=== PATIENT | male | born 1955 | race Caucasian/White ===

== ENCOUNTER 2017-06-20 10:22 | Emergency (ER) | payer BC ==
[2017-06-20 10:32] VITALS: TEMP 98.1
[2017-06-20] MEDS ORDERED: LIDOCAINE 2% VISCOUS 15 ML UDCUP PO ONE (10:58)
[2017-06-20] MEDS ORDERED: MAG HYDROX/AL HYDROX/SIMETH 30 ML UDCUP PO ONE (10:58)
[2017-06-20] MEDS ORDERED: HYOSCYAMINE SULFATE 0.125 MG TAB PO ONE (10:58)
[2017-06-20] MEDS ORDERED: ASPIRIN 81 MG CHEWABLE TAB PO ONE (10:58)
--- NOTE | 2017-06-20 11:01 | CPEKG ---
Heart Rate: 74 RR Interval: 811 P-R Interval: 188 QRSD Interval: 82 QT Interval: 408 QTC Interval: 453 P [place]: 76 QRS [place]: -3 T Wave [place]: 60 EKG Severity - NORMAL ECG - EKG Impression: SINUS RHYTHM Electronically Signed By: Tyler Wilson 20-Jun-2017 11:09:18
[2017-06-20 11:05] LABS: PLATELET COUNT 153 10^3/uL (150-400)
--- NOTE | 2017-06-20 11:08 | EDPHY ---
H & P Stated Complaint: L sided CP/indigestion last pm;wants to get checked before travelling Time Seen by Provider: 06/20/17 10:48 HPI/ROS: CHIEF COMPLAINT: Chest pain HISTORY OF PRESENT ILLNESS: The patient is a 61-year-old man with no significant medical history who comes to the emergency department complaining of chest pain in his left chest that began around 3:00 a.m.. He has had similar symptoms in the past and has had a negative cardiac workup previously. He had a negative stress test 1 year ago. He has been told before that he has an irregular heart rhythm. He thought maybe he had indigestion today. He has not taken any medications. It does not hurt worse with movement. He drove her a week ago from [facility]. No leg pain or swelling. REVIEW OF SYSTEMS: Constitutional: denies: chills, fever, recent illness, recent injury EENTM: denies: blurred vision, double vision, nose congestion Respiratory: denies: cough, shortness of breath Cardiac: See HPI, no lightheadedness or palpitations. Gastrointestinal/Abdominal: denies: abdominal pain, diarrhea, nausea, vomiting, blood streaked stools Genitourinary: denies: dysuria, frequency, hematuria, pain Musculoskeletal: denies: joint pain, muscle pain Skin: denies: lesions, rash, jaundice, bruising Neurological: denies: headache, numbness, paresthesia, tingling, dizziness, weakness Hematologic/Lymphatic: denies: blood clots, easy bleeding, easy bruising Immunologic/allergic: denies: HIV/AIDS, transplant EXAM: GENERAL: Well-appearing, thin and in no acute distress. HEAD: Atraumatic, normocephalic. EYES: Pupils equal round and reactive to light, extraocular movements intact, sclera anicteric, conjunctiva are normal. ENT: TMs normal, nares patent, oropharynx clear without exudates. Moist mucous membranes. NECK: Normal range of motion, supple without lymphadenopathy or JVD. LUNGS: Breath sounds clear to auscultation bilaterally and equal. No wheezes rales or rhonchi. HEART: Regular rate and rhythm without murmurs, rubs or gallops. ABDOMEN: Soft, nontender, normoactive bowel sounds. No guarding, no rebound. No masses appreciated. BACK: No CVA tenderness, no spinal tenderness, step-offs or deformities EXTREMITIES: Normal range of motion, no pitting or edema. No clubbing or cyanosis. NEUROLOGICAL: Cranial nerves II through XII grossly intact. Normal speech, normal gait. 5/5 strength, normal movement in all extremities, normal sensation PSYCH: Normal mood, normal affect. SKIN: Warm, dry, normal turgor, no visible rashes or lesions. Source: Patient Exam Limitations: No limitations - Personal History Current Tetanus Diphtheria and Acellular Pertussis (TDAP): Yes - Medical/Surgical History Hx Asthma: No Hx Chronic Respiratory Disease: No Hx Diabetes: No Hx Cardiac Disease: No Hx Renal Disease: No Hx Cirrhosis: No Other PMH: migraines - Family History Significant Family History: No pertinent family hx - Social History Smoking Status: Never smoked Alcohol Use: Sober Drug Use: None Constitutional: Initial Vital Signs Temperature (C) 36.7 C 06/20/17 10:23 Heart Rate 91 06/20/17 10:23 Respiratory Rate 18 06/20/17 10:23 Blood Pressure 120/79 06/20/17 10:23 O2 Sat (%) 98 06/20/17 10:23 O2 Delivery Mode Room Air Allergies/Adverse Reactions: No Known Allergies Allergy (Unverified 06/20/17 10:27) Home Medications: Medication Instructions Recorded Eletriptan HBr [Relpax] 20 mg PO 06/20/17 Medical Decision Making - Diagnostics EKG Interpretation: An EKG obtained and was read and documented in trace view. Please see trace view for full reading and report. Sinus rhythm with sinus arrhythmia. Imaging: Discussed imaging studies w/ callisthenics instructor Radiologist ED Course/Re-evaluation: 2:20 p.m. the patient is currently asymptomatic. He feels that the GI cocktail helped. We discussed his lab work and imaging which are reassuring considering the duration of his symptoms. I did offer repeat troponin testing. We discussed the risks and benefits. At this point he declines further workup or testing. He is eager to go home. We discussed indications for return. We discussed the importance of follow-up and stress testing. He would like to start taking his 's antacid to see if this helps. Differential Diagnosis: Partial list of the Differential diagnosis considered include but were not limited to; chest pain, the acute coronary disease, peptic ulcer disease, GERD and although unlikely based on the history and physical exam, I also considered PE, dissection. I discussed these differential diagnoses and the plan with the patient as well as the usual and expected course. The patient understands that the diagnosis is provisional and that in medicine we are not always correct and that further workup is often warranted. Usual and customary warnings were given. All of the patient's questions were answered. The patient was instructed to return to the emergency department should the symptoms at all worsen or return, otherwise to followup with the physician as we discussed. - Data Points Laboratory Results: Laboratory Results 06/20/17 10:50 06/20/17 10:50 Medications Given: Discontinued Medications Al Hydroxide/Mg Hydroxide (Maalox Susp) 30 ml PO ONCE ONE Stop: 06/20/17 10:59 Last Admin: 06/20/17 11:08 Dose: 30 ml Aspirin (Aspirin) 324 mg PO EDNOW ONE Stop: 06/20/17 10:59 Last Admin: 06/20/17 11:04 Dose: 324 mg Hyoscyamine Sulfate (Levsin, Hyomax-Sl) 0.25 mg PO ONCE ONE Stop: 06/20/17 10:59 Last Admin: 06/20/17 11:05 Dose: 0.25 mg Lidocaine (Lidocaine 2% Viscous) 15 ml PO ONCE ONE Stop: 06/20/17 10:59 Last Admin: 06/20/17 11:07 Dose: 15 ml Departure - Departure Disposition: Home, Routine, Self-Care Clinical Impression: Chest pain Qualifiers: Chest pain type: unspecified Qualified Code(s): R07.9 - Chest pain, unspecified Condition: Fair Instructions: Chest Pain (ED) Referrals: AKI GONZALEZ [Other] - 2-3 days without fail
[2017-06-20 11:18] LABS: INR 1.13 (0.83-1.16); PROTIME(PATIENT) 14.7 SEC (12.0-15.0)
[2017-06-20] MEDS ORDERED: PROMETHAZINE HCL 25 MG/ML INJ ONE (12:00)
[2017-06-20 12:25] VITALS: BP 112/71; PULSE 63; RESP 16; O2SAT 94
== END 2017-06-20 12:48 | disposition home or self-care (01) ==
DX: R07.9 Chest pain, unspecified (principal)
CPT/HCPCS: J2550